=== PATIENT | male | born 1955 | race Caucasian/White ===

== ENCOUNTER 2018-05-15 15:33 | Inpatient (IN) | payer OTHER ==
[2018-05-15 16:17] LABS: ABNORMAL IP MESSAGE 1; HEMATOCRIT 53.7 % (42.0-52.0); HEMOGLOBIN 18.2 g/dl (14.0-18.0); MEAN CORPUSCULAR HEMOGLOBIN 28.7 pg (29.0-33.0); MEAN CORPUSCULAR HGB CONC 33.9 g/dl (32.0-37.0); MEAN CORPUSCULAR VOLUME 84.6 fl (82.0-101.0); MEAN PLATELET VOLUME 10.3 fl (7.4-10.4); PLATELET COUNT 294 10^3/UL (140-415); POSITIVE DIFF @See below; RED BLOOD COUNT 6.35 10^6/ul (4.70-6.10); RED CELL DISTRIBUTION WIDTH 12.4 % (11.5-14.5)
[2018-05-15 16:17] LABS: WHITE BLOOD COUNT 22.4 10^3/ul (4.8-10.8)
[2018-05-15 16:20] LABS: ADD MAN DIFF? YES; PATH REVIEW? YES
[2018-05-15 16:23] LABS: ALANINE AMINOTRANSFERASE 28 IU/L (13-69); ALBUMIN 4.9 g/dl (3.3-4.9); ALBUMIN/GLOBULIN RATIO 1.44; ALKALINE PHOSPHATASE 60 IU/L (42-121); ANION GAP 15 (5-13); ASPARTATE AMINO TRANSFERASE 49 IU/L (15-46); BILIRUBIN,INDIRECT 0.8 mg/dl (0-1.1); BILIRUBIN,TOTAL 0.8 mg/dl (0.2-1.3); BLOOD UREA NITROGEN 20 mg/dl (7-20); CALCIUM 10.5 mg/dl (8.4-10.2); CARBON DIOXIDE 25 mmol/L (21-31); CHLORIDE 98 mmol/L (97-110); CREATININE 1.18 mg/dl (0.61-1.24); Estimated GFR > 60 mL/min (>60); GLUCOSE 182 mg/dl (70-220); POTASSIUM 4.7 mmol/L (3.5-5.1); SODIUM 138 mmol/L (135-144); TOTAL PROTEIN 8.3 g/dl (6.1-8.1)
[2018-05-15] MEDS: SOD CHLORIDE 0.9% 1,000 ML IV (16:26)
[2018-05-15] MEDS: ONDANSETRON 4 MG INJ IV (16:26)
[2018-05-15 16:35] LABS: TROPONIN-I < 0.012 ng/ml (0.000-0.120)
[2018-05-15 16:48] LABS: LIPASE 4221 U/L (23-300)
[2018-05-15 17:17] LABS: ADD UMIC YES; UR ASCORBIC ACID NEGATIVE (NEGATIVE); UR BACTERIA FEW /HPF (NONE SEEN); UR BILIRUBIN (Dip) NEGATIVE (NEGATIVE); UR BLOOD (Dip) 2+ mg/dL (NEGATIVE); UR CLARITY SLIGHTLY CLOUDY (CLEAR); UR COLOR AMBER (YELLOW); UR GLUCOSE (Dip) NEGATIVE (NEGATIVE); UR KETONES (Dip) TRACE mg/dL (NEGATIVE); UR LEUKOCYTE ESTERASE (Dip) NEGATIVE Leu/ul (NEGATIVE); UR MUCUS FEW /HPF (NONE SEEN); UR NITRITE (Dip) NEGATIVE (NEGATIVE); UR RBC 3 /HPF (0-5); UR SPECIFIC GRAVITY (Dip) 1.032 (1.003-1.030); UR SQUAMOUS EPITHELIAL CELL FEW /HPF (FEW); UR TOTAL PROTEIN (Dip) 3+ mg/dl (NEGATIVE); UR UROBILINOGEN (Dip) NEGATIVE (NEGATIVE); UR WBC 9 /HPF (0-5)
[2018-05-15] MEDS: SODIUM CHLORIDE 0.9% 1L BAG IV* (18:06)
[2018-05-15] MEDS: CEFEPIME 2GM/50 ML (PMX) 50 ML IVPB (18:08)
[2018-05-15 18:10] LABS: ANISOCYTOSIS 1+ (0-0); BAND NEUTROPHILS #M 3.5 10^3/ul (0.0-0.6); BAND NEUTROPHILS % (M) 16 % (0-4); BURR CELLS 1+ (0-0); GIANT THROMBO% (M) 1 % (0-0); LYMPHOCYTES #M 0.6 10^3/ul (0.8-2.9); LYMPHOCYTES % (M) 3 % (15-51); MICROCYTOSIS 1+ (0-0); MONOCYTE #M 1.1 10^3/ul (0.3-0.9); MONOCYTES % (M) 5 % (0-11); OVALOCYTES 1+ (0-0); PLATELET ESTIMATE NORMAL; POIKILOCYTOSIS 2+ (0-0); SEG NEUT #M 17.8 10^3/ul (1.6-7.5); SEGMENTED NEUTROPHILS (M) % 76 % (39-77); SMUDGE%M 1 % (0-0)
[2018-05-15] MEDS: CLINDAMYCIN 900 MG/D5W (PMX) 50 ML IVPB (18:55)
[2018-05-15] MEDS: VANCOMYCIN 1 GM (PMX) 250 ML IVPB (18:55)
[2018-05-15 22:05] LABS: LACTIC ACID 1.8 mmol/L (0.5-2.0)
[2018-05-16] MEDS: ALBUTEROL 0.083% (NEB) 2.5 MG/3 ML AMP HHN (02:09)
[2018-05-16] MEDS: IPRATROPIUM (NEB) 0.5 MG/2.5 ML AMP HHN (02:09)
[2018-05-16] MEDS ORDERED: VANCOMYCIN IV PER PHARMACY XX (10:00)
[2018-05-16] MEDS: SOD CHLORIDE 0.9% 1,000 ML IV ×2 (10:10→21:18)
[2018-05-16 10:33] LABS: ADD MAN DIFF? NO
[2018-05-16] MEDS: CEFEPIME 1GM/50 ML (PMX) 50 ML IVPB (10:40)
[2018-05-16 10:46] LABS: ABNORMAL IP MESSAGE 1; HEMATOCRIT 50.7 % (42.0-52.0); MEAN CORPUSCULAR HGB CONC 33.5 g/dl (32.0-37.0); MEAN CORPUSCULAR VOLUME 86.5 fl (82.0-101.0); MEAN PLATELET VOLUME 10.5 fl (7.4-10.4); PLATELET COUNT 231 10^3/UL (140-415); POSITIVE DIFF @See below; RED BLOOD COUNT 5.86 10^6/ul (4.70-6.10); RED CELL DISTRIBUTION WIDTH 13.1 % (11.5-14.5)
[2018-05-16 10:46] LABS: WHITE BLOOD COUNT 29.4 10^3/ul (4.8-10.8)
[2018-05-16] MEDS: VANCOMYCIN 1 GM in 250 ML IVPB (10:58)
[2018-05-16 11:15] LABS: ALANINE AMINOTRANSFERASE 24 IU/L (13-69); ALBUMIN 4.1 g/dl (3.3-4.9); ALBUMIN/GLOBULIN RATIO 1.28; ALKALINE PHOSPHATASE 53 IU/L (42-121); ANION GAP 11 (5-13); ASPARTATE AMINO TRANSFERASE 38 IU/L (15-46); BILIRUBIN,INDIRECT 0.6 mg/dl (0-1.1); BILIRUBIN,TOTAL 0.6 mg/dl (0.2-1.3); BLOOD UREA NITROGEN 24 mg/dl (7-20); CALCIUM 9.4 mg/dl (8.4-10.2); CARBON DIOXIDE 27 mmol/L (21-31); CHLORIDE 104 mmol/L (97-110); CREATININE 1.13 mg/dl (0.61-1.24); Estimated GFR > 60 mL/min (>60); GLUCOSE 148 mg/dl (70-220); LIPASE 1464 U/L (23-300); POTASSIUM 4.3 mmol/L (3.5-5.1); SODIUM 142 mmol/L (135-144); TOTAL PROTEIN 7.3 g/dl (6.1-8.1)
[2018-05-16 11:31] LABS: ANISOCYTOSIS 1+ (0-0); BAND NEUTROPHILS #M 5.2 10^3/ul (0.0-0.6); BAND NEUTROPHILS % (M) 18 % (0-4); BURR CELLS 1+ (0-0); LYMPHOCYTES #M 0.2 10^3/ul (0.8-2.9); LYMPHOCYTES % (M) 1 % (15-51); METAMYELOCYTES #M 0.2 10^3/ul (0.0-0.0); METAMYELOCYTES %M 1 % (0-0); MONOCYTE #M 1.4 10^3/ul (0.3-0.9); MONOCYTES % (M) 5 % (0-11); PLATELET ESTIMATE NORMAL; RBC MORPHOLOGY COMMENT @See below; SEG NEUT #M 23.6 10^3/ul (1.6-7.5); SEGMENTED NEUTROPHILS (M) % 75 % (39-77); SMUDGE%M 18 % (0-0); WBC MORPHOLOGY COMMENT @See below
[2018-05-16] MEDS: LABETALOL HCL 20MG INJ IV (13:48)
[2018-05-16] MEDS ORDERED: ONDANSETRON 4 MG INJ IV (19:30)
[2018-05-16] MEDS ORDERED: HYDROmorphONE 0.5 MG/0.5 ML SYG IV (19:30)
[2018-05-16] MEDS ORDERED: NACL 0.9% 3 ML SYG IV (19:30)
[2018-05-16] MEDS: HEPARIN 5,000 UNIT/1 ML VIAL SC (21:21)
[2018-05-16] MEDS ORDERED: VANCOMYCIN HCL 1.5 GM in SOD CHLORIDE 0.9% 250 ML IVPB (22:00)
[2018-05-16] MEDS: ACETAMINOPHEN 325 MG TAB PO (22:06)
[2018-05-16] MEDS: LEVALBUTEROL (NEB) 1.25 MG/0.5 ML AMP HHN (23:29)
[2018-05-16] MEDS ORDERED: IPRATROPIUM (HFA) 12.9 GM INHALER INH (23:30)
[2018-05-16] MEDS ORDERED: IPRATROPIUM (NEB) 0.5 MG/2.5 ML AMP HHN (23:30)
[2018-05-16] MEDS ORDERED: FUROSEMIDE 40 MG INJ (23:43)
[2018-05-16] MEDS: VANCOMYCIN HCL 1.25 GM in SOD CHLORIDE 0.9% 250 ML IVPB (23:46)
[2018-05-16] MEDS: FUROSEMIDE 40 MG INJ IV (23:53)
[2018-05-16 23:59] LABS: AADO2 Arterial 80.3 mmHg (7.0-24.0); Allen Test ACCEPTAB; Arterial Base Excess 2.2 mmol/L (-3.0-3); Arterial Blood Gas Oxygen Sat 96.2 mmHG (95.0-98.0); Arterial COHb 0.9 % (0.0-3.0); Arterial Fraction of Oxyhgb 95.1 % (93.0-99.0); Arterial HCO3 27.8 mmol/L (22.0-26.0); Arterial MetHb 0.2 % (0.0-1.5); Arterial pCO2 46.5 mmhg (35-45); MODE NASAL CANNULA; Site Right Radial
[2018-05-17] MEDS ORDERED: DIPHENHYDRAMINE 50 MG CAP PO (00:30)
[2018-05-17] MEDS: ACETAMINOPHEN 325 MG TAB PO (01:06)
[2018-05-17] MEDS ORDERED: PIPER-TAZO 3.375 GM IV (PMX) 100 ML IVPB (02:00)
[2018-05-17] MEDS: PIPER-TAZO 3.375 GM IV (PMX) 100 ML IVPB ×5 (02:24→23:40)
[2018-05-17 05:55] LABS: ABNORMAL IP MESSAGE 1; HEMATOCRIT 47.4 % (42.0-52.0); HEMOGLOBIN 15.9 g/dl (14.0-18.0); MEAN CORPUSCULAR HEMOGLOBIN 29.1 pg (29.0-33.0); MEAN CORPUSCULAR HGB CONC 33.5 g/dl (32.0-37.0); MEAN CORPUSCULAR VOLUME 86.8 fl (82.0-101.0); MEAN PLATELET VOLUME 10.6 fl (7.4-10.4); PLATELET COUNT 184 10^3/UL (140-415); POSITIVE DIFF @See below; RED BLOOD COUNT 5.46 10^6/ul (4.70-6.10); RED CELL DISTRIBUTION WIDTH 13.2 % (11.5-14.5)
[2018-05-17 05:55] LABS: WHITE BLOOD COUNT 25.8 10^3/ul (4.8-10.8)
[2018-05-17 06:01] LABS: ADD MAN DIFF? YES
[2018-05-17 06:22] LABS: HEMOGLOBIN A1C 5.9 % (0-5.9)
[2018-05-17 06:32] LABS: ALANINE AMINOTRANSFERASE 26 IU/L (13-69); ALBUMIN 3.8 g/dl (3.3-4.9); ALBUMIN/GLOBULIN RATIO 1.18; ALKALINE PHOSPHATASE 55 IU/L (42-121); ANION GAP 13 (5-13); ASPARTATE AMINO TRANSFERASE 30 IU/L (15-46); BILIRUBIN,INDIRECT 0.5 mg/dl (0-1.1); BILIRUBIN,TOTAL 0.5 mg/dl (0.2-1.3); BLOOD UREA NITROGEN 27 mg/dl (7-20); CARBON DIOXIDE 29 mmol/L (21-31); CHLORIDE 104 mmol/L (97-110); CREATININE 1.03 mg/dl (0.61-1.24); Estimated GFR > 60 mL/min (>60); GLUCOSE 140 mg/dl (70-220); POTASSIUM 4.1 mmol/L (3.5-5.1); SODIUM 146 mmol/L (135-144)
[2018-05-17] MEDS: NIFEdipine (XL) 30 MG TAB PO (08:46)
[2018-05-17] MEDS: FLUOXETINE 20 MG CAP PO (08:47)
[2018-05-17] MEDS: BENAZEPRIL 40 MG TAB PO (08:47)
[2018-05-17] MEDS: HYDROCHLOROTHIAZIDE 12.5 MG CAP PO (08:47)
[2018-05-17] MEDS: ASPIRIN (EC) 81 MG TAB PO (08:48)
[2018-05-17] MEDS: ARIPIPRAZOLE 5 MG TAB PO (08:48)
[2018-05-17] MEDS: LABETALOL 100 MG TAB PO (08:49)
[2018-05-17 08:52] LABS: BAND NEUTROPHILS #M 4.1 10^3/ul (0.0-0.6); BAND NEUTROPHILS % (M) 16 % (0-4); LYMPHOCYTES % (M) 4 % (15-51); MONOCYTE #M 0.5 10^3/ul (0.3-0.9); MONOCYTES % (M) 2 % (0-11); PLATELET ESTIMATE NORMAL; POIKILOCYTOSIS 2+ (0-0); REACTIVE LYMPHOCYTES #M 0.2 10^3/ul (0.0-0.0); REACTIVE LYMPHOCYTES% (M) 1 % (0-0); SEG NEUT #M 20.9 10^3/ul (1.6-7.5); SEGMENTED NEUTROPHILS (M) % 77 % (39-77); SMUDGE%M 4 % (0-0)
[2018-05-17] MEDS: HEPARIN 5,000 UNIT/1 ML VIAL SC ×2 (08:53→20:33)
[2018-05-17] MEDS ORDERED: CHLORTHALIDONE 25 MG TAB PO (09:00)
[2018-05-17] MEDS: VANCOMYCIN HCL 1.25 GM in SOD CHLORIDE 0.9% 250 ML IVPB (12:07)
[2018-05-17] MEDS: TAMSULOSIN (SR) 0.4 MG CAP PO (20:28)
[2018-05-17 22:24] LABS: CHOLESTEROL 182 mg/dl (100-200)
[2018-05-17 22:24] LABS: CHOL/HDL RATIO 9.5 RATIO; HDL CHOLESTEROL 19 mg/dl (30-78); LDL CHOLESTEROL,CALCULATED 124 mg/dl; TRIGLYCERIDES 196 mg/dl (0-149)
[2018-05-17 22:35] LABS: VANCOMYCIN,TROUGH 8.3 ug/ml (10.0-20.0)
[2018-05-17] MEDS: VANCOMYCIN 1 GM 250 ML IVPB (23:40)
[2018-05-18] MEDS: ALBUMIN HUMAN 25% 100 ML IV ×2 (00:22→02:07)
[2018-05-18] MEDS: MEROPENEM 1 GM/50ML(PMX) 50 ML IVPB ×3 (01:21→18:00)
[2018-05-18] MEDS: DOCUSATE SODIUM 100 MG CAP PO ×3 (01:21→21:09)
[2018-05-18] MEDS: SOD CHLORIDE 0.9% 1,000 ML IV ×4 (01:21→23:45)
[2018-05-18] MEDS: POLYETHYLENE GLYCOL 17 GM PACKET PO ×2 (01:21→09:48)
[2018-05-18 06:06] LABS: ADD MAN DIFF? NO
[2018-05-18 06:16] LABS: BASOPHIL # 0.1 10^3/ul (0.0-0.1); BASOPHILS % 0.3 % (0.0-2.0); EOSINOPHILS % 0.1 % (0.0-7.0); HEMATOCRIT 42.5 % (42.0-52.0); HEMOGLOBIN 13.9 g/dl (14.0-18.0); LYMPHOCYTES # 1.3 10^3/ul (0.8-2.9); LYMPHOCYTES % 7.3 % (15.0-51.0); MEAN CORPUSCULAR HEMOGLOBIN 28.8 pg (29.0-33.0); MEAN CORPUSCULAR HGB CONC 32.7 g/dl (32.0-37.0); MONOCYTES % 5.3 % (0.0-11.0); NEUTROPHIL # 15.8 10^3/ul (1.6-7.5); NEUTROPHILS % 86.1 % (39.0-77.0); PLATELET COUNT 216 10^3/UL (140-415); RED BLOOD COUNT 4.83 10^6/ul (4.70-6.10); RED CELL DISTRIBUTION WIDTH 13.1 % (11.5-14.5)
[2018-05-18 06:16] LABS: WHITE BLOOD COUNT 18.3 10^3/ul (4.8-10.8)
[2018-05-18 06:40] LABS: ALANINE AMINOTRANSFERASE 27 IU/L (13-69); ALBUMIN/GLOBULIN RATIO 1.25; ALKALINE PHOSPHATASE 57 IU/L (42-121); ANION GAP 13 (5-13); ASPARTATE AMINO TRANSFERASE 33 IU/L (15-46); BILIRUBIN,INDIRECT 0.6 mg/dl (0-1.1); BILIRUBIN,TOTAL 0.6 mg/dl (0.2-1.3); BLOOD UREA NITROGEN 28 mg/dl (7-20); CALCIUM 9.1 mg/dl (8.4-10.2); CARBON DIOXIDE 32 mmol/L (21-31); CHLORIDE 104 mmol/L (97-110); CREATININE 0.93 mg/dl (0.61-1.24); Estimated GFR > 60 mL/min (>60); GLUCOSE 127 mg/dl (70-220); LIPASE 393 U/L (23-300); POTASSIUM 3.4 mmol/L (3.5-5.1); SODIUM 149 mmol/L (135-144); TOTAL PROTEIN 7.2 g/dl (6.1-8.1)
[2018-05-18] MEDS: VANCOMYCIN 1 GM 250 ML IVPB (06:58)
[2018-05-18] MEDS: ARIPIPRAZOLE 5 MG TAB PO (09:48)
[2018-05-18] MEDS: ASPIRIN (EC) 81 MG TAB PO (09:48)
[2018-05-18] MEDS: FLUOXETINE 20 MG CAP PO (09:48)
[2018-05-18] MEDS: NIFEdipine (XL) 30 MG TAB PO (09:49)
[2018-05-18] MEDS: LABETALOL 100 MG TAB PO (09:49)
[2018-05-18] MEDS: HEPARIN 5,000 UNIT/1 ML VIAL SC ×2 (09:58→21:18)
[2018-05-18] MEDS: TAMSULOSIN (SR) 0.4 MG CAP PO (21:09)
[2018-05-19] MEDS: MEROPENEM 1 GM/50ML(PMX) 50 ML IVPB ×3 (01:07→18:42)
[2018-05-19 06:02] LABS: ANION GAP 7 (5-13); BLOOD UREA NITROGEN 23 mg/dl (7-20); CALCIUM 8.8 mg/dl (8.4-10.2); CARBON DIOXIDE 31 mmol/L (21-31); CHLORIDE 107 mmol/L (97-110); CREATININE 0.78 mg/dl (0.61-1.24); Estimated GFR > 60 mL/min (>60); GLUCOSE 119 mg/dl (70-220); LIPASE 459 U/L (23-300); POTASSIUM 3.2 mmol/L (3.5-5.1); SODIUM 145 mmol/L (135-144)
[2018-05-19] MEDS: SOD CHLORIDE 0.9% 1,000 ML IV ×2 (08:38→16:32)
[2018-05-19] MEDS: POLYETHYLENE GLYCOL 17 GM PACKET PO (08:42)
[2018-05-19] MEDS: ARIPIPRAZOLE 5 MG TAB PO (08:42)
[2018-05-19] MEDS: NIFEdipine (XL) 30 MG TAB PO (08:42)
[2018-05-19] MEDS: ASPIRIN (EC) 81 MG TAB PO (08:42)
[2018-05-19] MEDS: FLUOXETINE 20 MG CAP PO (08:42)
[2018-05-19] MEDS: DOCUSATE SODIUM 100 MG CAP PO ×2 (08:43→21:09)
[2018-05-19] MEDS: LABETALOL 100 MG TAB PO (08:43)
[2018-05-19] MEDS: HEPARIN 5,000 UNIT/1 ML VIAL SC ×2 (09:33→21:12)
[2018-05-19] MEDS: POTASSIUM CHLORIDE 100 ML IVPB ×2 (14:25→21:08)
[2018-05-19] MEDS: TAMSULOSIN (SR) 0.4 MG CAP PO (21:09)
[2018-05-20] MEDS: SOD CHLORIDE 0.9% 1,000 ML IV ×3 (01:00→15:09)
[2018-05-20] MEDS: MEROPENEM 1 GM/50ML(PMX) 50 ML IVPB ×3 (01:00→16:38)
[2018-05-20 05:35] LABS: ADD MAN DIFF? NO
[2018-05-20 05:37] LABS: BASOPHILS % 0.2 % (0.0-2.0); EOSINOPHILS # 0.3 10^3/ul (0.0-0.5); EOSINOPHILS % 2.1 % (0.0-7.0); HEMATOCRIT 42.3 % (42.0-52.0); HEMOGLOBIN 14.1 g/dl (14.0-18.0); LYMPHOCYTES # 1.4 10^3/ul (0.8-2.9); LYMPHOCYTES % 8.5 % (15.0-51.0); MEAN CORPUSCULAR HGB CONC 33.3 g/dl (32.0-37.0); MEAN CORPUSCULAR VOLUME 86.9 fl (82.0-101.0); MEAN PLATELET VOLUME 10.9 fl (7.4-10.4); MONOCYTE # 1.1 10^3/ul (0.3-0.9); MONOCYTES % 6.6 % (0.0-11.0); NEUTROPHIL # 13.1 10^3/ul (1.6-7.5); NEUTROPHILS % 81.7 % (39.0-77.0); PLATELET COUNT 210 10^3/UL (140-415); RED BLOOD COUNT 4.87 10^6/ul (4.70-6.10); RED CELL DISTRIBUTION WIDTH 12.9 % (11.5-14.5)
[2018-05-20 06:29] LABS: ANION GAP 11 (5-13); BLOOD UREA NITROGEN 19 mg/dl (7-20); CALCIUM 8.9 mg/dl (8.4-10.2); CARBON DIOXIDE 26 mmol/L (21-31); CHLORIDE 104 mmol/L (97-110); CREATININE 0.76 mg/dl (0.61-1.24); Estimated GFR > 60 mL/min (>60); GLUCOSE 106 mg/dl (70-220); LIPASE 437 U/L (23-300); POTASSIUM 3.3 mmol/L (3.5-5.1); SODIUM 141 mmol/L (135-144)
[2018-05-20] MEDS: DOCUSATE SODIUM 100 MG CAP PO ×2 (08:36→21:00)
[2018-05-20] MEDS: POLYETHYLENE GLYCOL 17 GM PACKET PO (08:36)
[2018-05-20] MEDS: ASPIRIN (EC) 81 MG TAB PO (08:37)
[2018-05-20] MEDS: LABETALOL 100 MG TAB PO (08:37)
[2018-05-20] MEDS: FLUOXETINE 20 MG CAP PO (08:37)
[2018-05-20] MEDS: ARIPIPRAZOLE 5 MG TAB PO (08:37)
[2018-05-20] MEDS: NIFEdipine (XL) 30 MG TAB PO (08:38)
[2018-05-20] MEDS: HEPARIN 5,000 UNIT/1 ML VIAL SC ×2 (09:05→21:04)
[2018-05-20] MEDS: TAMSULOSIN (SR) 0.4 MG CAP PO (21:00)
[2018-05-21] MEDS: MEROPENEM 1 GM/50ML(PMX) 50 ML IVPB ×3 (02:22→16:15)
[2018-05-21] MEDS: SOD CHLORIDE 0.9% 1,000 ML IV ×2 (02:23→08:29)
[2018-05-21 05:38] LABS: ADD MAN DIFF? NO
[2018-05-21 05:41] LABS: WHITE BLOOD COUNT 15.2 10^3/ul (4.8-10.8)
[2018-05-21 05:41] LABS: BASOPHIL # 0.1 10^3/ul (0.0-0.1); BASOPHILS % 0.4 % (0.0-2.0); EOSINOPHILS # 0.3 10^3/ul (0.0-0.5); EOSINOPHILS % 1.9 % (0.0-7.0); HEMATOCRIT 42.1 % (42.0-52.0); HEMOGLOBIN 13.9 g/dl (14.0-18.0); LYMPHOCYTES # 1.3 10^3/ul (0.8-2.9); LYMPHOCYTES % 8.7 % (15.0-51.0); MEAN CORPUSCULAR HEMOGLOBIN 28.8 pg (29.0-33.0); MEAN CORPUSCULAR VOLUME 87.3 fl (82.0-101.0); MEAN PLATELET VOLUME 10.8 fl (7.4-10.4); MONOCYTES % 6.6 % (0.0-11.0); NEUTROPHIL # 12.2 10^3/ul (1.6-7.5); NEUTROPHILS % 80.5 % (39.0-77.0); PLATELET COUNT 214 10^3/UL (140-415); RED BLOOD COUNT 4.82 10^6/ul (4.70-6.10); RED CELL DISTRIBUTION WIDTH 12.6 % (11.5-14.5)
[2018-05-21 06:08] LABS: ALANINE AMINOTRANSFERASE 45 IU/L (13-69); ALBUMIN 3.3 g/dl (3.3-4.9); ALBUMIN/GLOBULIN RATIO 1.06; ALKALINE PHOSPHATASE 61 IU/L (42-121); ANION GAP 14 (5-13); ASPARTATE AMINO TRANSFERASE 43 IU/L (15-46); BILIRUBIN,INDIRECT 0.2 mg/dl (0-1.1); BILIRUBIN,TOTAL 0.2 mg/dl (0.2-1.3); BLOOD UREA NITROGEN 19 mg/dl (7-20); CALCIUM 8.7 mg/dl (8.4-10.2); CARBON DIOXIDE 27 mmol/L (21-31); CHLORIDE 103 mmol/L (97-110); CREATININE 0.71 mg/dl (0.61-1.24); Estimated GFR > 60 mL/min (>60); GLUCOSE 102 mg/dl (70-220); LIPASE 413 U/L (23-300); POTASSIUM 3.3 mmol/L (3.5-5.1); SODIUM 144 mmol/L (135-144); TOTAL PROTEIN 6.4 g/dl (6.1-8.1)
[2018-05-21] MEDS: DOCUSATE SODIUM 100 MG CAP PO ×2 (08:20→20:39)
[2018-05-21] MEDS: FLUOXETINE 20 MG CAP PO (08:20)
[2018-05-21] MEDS: ARIPIPRAZOLE 5 MG TAB PO (08:20)
[2018-05-21] MEDS: ASPIRIN (EC) 81 MG TAB PO (08:20)
[2018-05-21] MEDS: POLYETHYLENE GLYCOL 17 GM PACKET PO (08:21)
[2018-05-21] MEDS: LABETALOL 100 MG TAB PO (08:21)
[2018-05-21] MEDS: NIFEdipine (XL) 30 MG TAB PO (08:21)
[2018-05-21] MEDS: HEPARIN 5,000 UNIT/1 ML VIAL SC ×2 (08:27→20:40)
[2018-05-21] MEDS: POTASSIUM CHLORIDE 30 MEQ in SOD CHLORIDE 0.9% 1,000 ML IV ×2 (11:40→22:09)
[2018-05-21] MEDS: TAMSULOSIN (SR) 0.4 MG CAP PO (20:39)
[2018-05-22] MEDS: MEROPENEM 1 GM/50ML(PMX) 50 ML IVPB ×3 (00:30→17:06)
[2018-05-22 05:29] LABS: ADD MAN DIFF? NO
[2018-05-22 05:39] LABS: BASOPHIL # 0.1 10^3/ul (0.0-0.1); BASOPHILS % 0.6 % (0.0-2.0); EOSINOPHILS # 0.3 10^3/ul (0.0-0.5); EOSINOPHILS % 2.4 % (0.0-7.0); HEMATOCRIT 39.9 % (42.0-52.0); HEMOGLOBIN 13.5 g/dl (14.0-18.0); LYMPHOCYTES # 1.3 10^3/ul (0.8-2.9); LYMPHOCYTES % 9.6 % (15.0-51.0); MEAN CORPUSCULAR HGB CONC 33.8 g/dl (32.0-37.0); MEAN CORPUSCULAR VOLUME 85.8 fl (82.0-101.0); MEAN PLATELET VOLUME 11.1 fl (7.4-10.4); MONOCYTES % 6.8 % (0.0-11.0); NEUTROPHIL # 11.1 10^3/ul (1.6-7.5); PLATELET COUNT 229 10^3/UL (140-415); RED BLOOD COUNT 4.65 10^6/ul (4.70-6.10); RED CELL DISTRIBUTION WIDTH 12.8 % (11.5-14.5)
[2018-05-22 05:58] LABS: ALBUMIN 3.3 g/dl (3.3-4.9); ALBUMIN/GLOBULIN RATIO 1.26; ALKALINE PHOSPHATASE 68 IU/L (42-121); ANION GAP 11 (5-13); ASPARTATE AMINO TRANSFERASE 42 IU/L (15-46); BILIRUBIN,INDIRECT 0.2 mg/dl (0-1.1); BILIRUBIN,TOTAL 0.2 mg/dl (0.2-1.3); BLOOD UREA NITROGEN 18 mg/dl (7-20); CALCIUM 8.7 mg/dl (8.4-10.2); CARBON DIOXIDE 26 mmol/L (21-31); CHLORIDE 104 mmol/L (97-110); CREATININE 0.67 mg/dl (0.61-1.24); Estimated GFR > 60 mL/min (>60); GLUCOSE 104 mg/dl (70-220); POTASSIUM 3.3 mmol/L (3.5-5.1); SODIUM 141 mmol/L (135-144); TOTAL PROTEIN 5.9 g/dl (6.1-8.1)
[2018-05-22 06:02] LABS: ALANINE AMINOTRANSFERASE 41 IU/L (13-69)
[2018-05-22 06:04] LABS: LIPASE 326 U/L (23-300)
[2018-05-22] MEDS: POTASSIUM CHLORIDE 30 MEQ in SOD CHLORIDE 0.9% 1,000 ML IV ×2 (08:18→17:05)
[2018-05-22] MEDS: ARIPIPRAZOLE 5 MG TAB PO (08:45)
[2018-05-22] MEDS: FLUOXETINE 20 MG CAP PO (08:45)
[2018-05-22] MEDS: DOCUSATE SODIUM 100 MG CAP PO ×2 (08:47→21:36)
[2018-05-22] MEDS: LABETALOL 100 MG TAB PO (08:47)
[2018-05-22] MEDS: NIFEdipine (XL) 30 MG TAB PO (08:48)
[2018-05-22] MEDS: POLYETHYLENE GLYCOL 17 GM PACKET PO (08:52)
[2018-05-22] MEDS: ASPIRIN (EC) 81 MG TAB PO (08:52)
[2018-05-22] MEDS: HEPARIN 5,000 UNIT/1 ML VIAL SC ×2 (09:03→21:42)
[2018-05-22] MEDS: TAMSULOSIN (SR) 0.4 MG CAP PO (21:36)
[2018-05-23] MEDS: MEROPENEM 1 GM/50ML(PMX) 50 ML IVPB ×3 (01:26→16:02)
[2018-05-23] MEDS: POTASSIUM CHLORIDE 30 MEQ in SOD CHLORIDE 0.9% 1,000 ML IV ×3 (01:27→16:02)
[2018-05-23 05:39] LABS: ADD MAN DIFF? NO
[2018-05-23 05:45] LABS: BASOPHIL # 0.1 10^3/ul (0.0-0.1); BASOPHILS % 0.4 % (0.0-2.0); EOSINOPHILS # 0.3 10^3/ul (0.0-0.5); EOSINOPHILS % 2.4 % (0.0-7.0); HEMOGLOBIN 13.1 g/dl (14.0-18.0); LYMPHOCYTES # 1.1 10^3/ul (0.8-2.9); LYMPHOCYTES % 8.8 % (15.0-51.0); MEAN CORPUSCULAR HEMOGLOBIN 28.2 pg (29.0-33.0); MEAN CORPUSCULAR HGB CONC 32.8 g/dl (32.0-37.0); MEAN CORPUSCULAR VOLUME 86.2 fl (82.0-101.0); MEAN PLATELET VOLUME 10.6 fl (7.4-10.4); MONOCYTE # 0.9 10^3/ul (0.3-0.9); MONOCYTES % 6.8 % (0.0-11.0); NEUTROPHIL # 10.1 10^3/ul (1.6-7.5); NEUTROPHILS % 80.3 % (39.0-77.0); PLATELET COUNT 236 10^3/UL (140-415); RED BLOOD COUNT 4.64 10^6/ul (4.70-6.10); RED CELL DISTRIBUTION WIDTH 12.8 % (11.5-14.5)
[2018-05-23 05:45] LABS: WHITE BLOOD COUNT 12.6 10^3/ul (4.8-10.8)
[2018-05-23 06:06] LABS: ALANINE AMINOTRANSFERASE 45 IU/L (13-69); ALBUMIN 3.2 g/dl (3.3-4.9); ALKALINE PHOSPHATASE 69 IU/L (42-121); ANION GAP 11 (5-13); ASPARTATE AMINO TRANSFERASE 45 IU/L (15-46); BILIRUBIN,INDIRECT 0.2 mg/dl (0-1.1); BILIRUBIN,TOTAL 0.2 mg/dl (0.2-1.3); BLOOD UREA NITROGEN 15 mg/dl (7-20); CALCIUM 8.7 mg/dl (8.4-10.2); CARBON DIOXIDE 25 mmol/L (21-31); CHLORIDE 103 mmol/L (97-110); CREATININE 0.65 mg/dl (0.61-1.24); Estimated GFR > 60 mL/min (>60); POTASSIUM 3.5 mmol/L (3.5-5.1); SODIUM 139 mmol/L (135-144); TOTAL PROTEIN 6.1 g/dl (6.1-8.1)
[2018-05-23 06:12] LABS: GLUCOSE 106 mg/dl (70-220)
[2018-05-23] MEDS: LABETALOL 100 MG TAB PO (08:26)
[2018-05-23] MEDS: POLYETHYLENE GLYCOL 17 GM PACKET PO (08:26)
[2018-05-23] MEDS: ASPIRIN (EC) 81 MG TAB PO (08:26)
[2018-05-23] MEDS: NIFEdipine (XL) 30 MG TAB PO (08:26)
[2018-05-23] MEDS: ARIPIPRAZOLE 5 MG TAB PO (08:26)
[2018-05-23] MEDS: FLUOXETINE 20 MG CAP PO (08:26)
[2018-05-23] MEDS: DOCUSATE SODIUM 100 MG CAP PO ×2 (08:26→21:57)
[2018-05-23] MEDS: HEPARIN 5,000 UNIT/1 ML VIAL SC ×2 (08:34→22:11)
[2018-05-23] MEDS: TAMSULOSIN (SR) 0.4 MG CAP PO (21:57)
[2018-05-24] MEDS: MEROPENEM 1 GM/50ML(PMX) 50 ML IVPB ×3 (01:00→16:21)
[2018-05-24] MEDS: POTASSIUM CHLORIDE 30 MEQ in SOD CHLORIDE 0.9% 1,000 ML IV ×3 (01:14→16:21)
[2018-05-24 05:14] LABS: ADD MAN DIFF? NO; BASOPHILS % 0.4 % (0.0-2.0); EOSINOPHILS # 0.3 10^3/ul (0.0-0.5); EOSINOPHILS % 2.9 % (0.0-7.0); HEMATOCRIT 38.2 % (42.0-52.0); HEMOGLOBIN 12.9 g/dl (14.0-18.0); LYMPHOCYTES # 1.2 10^3/ul (0.8-2.9); LYMPHOCYTES % 10.1 % (15.0-51.0); MEAN CORPUSCULAR HEMOGLOBIN 29.1 pg (29.0-33.0); MEAN CORPUSCULAR HGB CONC 33.8 g/dl (32.0-37.0); MEAN CORPUSCULAR VOLUME 86.2 fl (82.0-101.0); MEAN PLATELET VOLUME 10.8 fl (7.4-10.4); MONOCYTE # 0.8 10^3/ul (0.3-0.9); MONOCYTES % 7.1 % (0.0-11.0); NEUTROPHIL # 8.9 10^3/ul (1.6-7.5); NEUTROPHILS % 78.3 % (39.0-77.0); PLATELET COUNT 231 10^3/UL (140-415); RED BLOOD COUNT 4.43 10^6/ul (4.70-6.10); RED CELL DISTRIBUTION WIDTH 12.9 % (11.5-14.5)
[2018-05-24 05:14] LABS: WHITE BLOOD COUNT 11.4 10^3/ul (4.8-10.8)
[2018-05-24 05:51] LABS: ALANINE AMINOTRANSFERASE 41 IU/L (13-69); ALBUMIN 3.2 g/dl (3.3-4.9); ALBUMIN/GLOBULIN RATIO 1.18; ALKALINE PHOSPHATASE 68 IU/L (42-121); ANION GAP 10 (5-13); ASPARTATE AMINO TRANSFERASE 46 IU/L (15-46); BILIRUBIN,INDIRECT 0.1 mg/dl (0-1.1); BILIRUBIN,TOTAL 0.1 mg/dl (0.2-1.3); BLOOD UREA NITROGEN 14 mg/dl (7-20); CALCIUM 8.6 mg/dl (8.4-10.2); CARBON DIOXIDE 29 mmol/L (21-31); CHLORIDE 101 mmol/L (97-110); Estimated GFR > 60 mL/min (>60); GLUCOSE 122 mg/dl (70-220); LIPASE 288 U/L (23-300); POTASSIUM 3.5 mmol/L (3.5-5.1); SODIUM 140 mmol/L (135-144); TOTAL PROTEIN 5.9 g/dl (6.1-8.1)
[2018-05-24] MEDS: ASPIRIN (EC) 81 MG TAB PO (08:20)
[2018-05-24] MEDS: ARIPIPRAZOLE 5 MG TAB PO (08:20)
[2018-05-24] MEDS: DOCUSATE SODIUM 100 MG CAP PO ×2 (08:20→20:05)
[2018-05-24] MEDS: POLYETHYLENE GLYCOL 17 GM PACKET PO (08:20)
[2018-05-24] MEDS: FLUOXETINE 20 MG CAP PO (08:21)
[2018-05-24] MEDS: NIFEdipine (XL) 30 MG TAB PO (08:21)
[2018-05-24] MEDS: LABETALOL 100 MG TAB PO (08:21)
[2018-05-24] MEDS: HEPARIN 5,000 UNIT/1 ML VIAL SC ×2 (08:27→20:15)
[2018-05-24] MEDS: TAMSULOSIN (SR) 0.4 MG CAP PO (20:04)
[2018-05-25] MEDS: MEROPENEM 1 GM/50ML(PMX) 50 ML IVPB ×3 (01:18→17:54)
[2018-05-25] MEDS: POTASSIUM CHLORIDE 30 MEQ in SOD CHLORIDE 0.9% 1,000 ML IV ×3 (02:24→17:52)
[2018-05-25 05:39] LABS: ADD MAN DIFF? NO
[2018-05-25 05:43] LABS: BASOPHILS % 0.2 % (0.0-2.0); EOSINOPHILS # 0.3 10^3/ul (0.0-0.5); EOSINOPHILS % 2.9 % (0.0-7.0); HEMOGLOBIN 12.9 g/dl (14.0-18.0); LYMPHOCYTES # 1.2 10^3/ul (0.8-2.9); LYMPHOCYTES % 13.2 % (15.0-51.0); MEAN CORPUSCULAR HEMOGLOBIN 28.2 pg (29.0-33.0); MEAN CORPUSCULAR HGB CONC 32.3 g/dl (32.0-37.0); MEAN CORPUSCULAR VOLUME 87.3 fl (82.0-101.0); MEAN PLATELET VOLUME 10.9 fl (7.4-10.4); MONOCYTE # 0.7 10^3/ul (0.3-0.9); MONOCYTES % 7.7 % (0.0-11.0); NEUTROPHIL # 6.8 10^3/ul (1.6-7.5); PLATELET COUNT 244 10^3/UL (140-415); RED BLOOD COUNT 4.58 10^6/ul (4.70-6.10)
[2018-05-25 06:09] LABS: ALANINE AMINOTRANSFERASE 52 IU/L (13-69); ALBUMIN/GLOBULIN RATIO 1.03; ALKALINE PHOSPHATASE 63 IU/L (42-121); ANION GAP 8 (5-13); ASPARTATE AMINO TRANSFERASE 46 IU/L (15-46); BLOOD UREA NITROGEN 13 mg/dl (7-20); CALCIUM 8.7 mg/dl (8.4-10.2); CARBON DIOXIDE 31 mmol/L (21-31); CHLORIDE 102 mmol/L (97-110); CREATININE 0.72 mg/dl (0.61-1.24); Estimated GFR > 60 mL/min (>60); GLUCOSE 124 mg/dl (70-220); LIPASE 294 U/L (23-300); POTASSIUM 3.8 mmol/L (3.5-5.1); SODIUM 141 mmol/L (135-144); TOTAL PROTEIN 5.9 g/dl (6.1-8.1)
[2018-05-25] MEDS: ARIPIPRAZOLE 5 MG TAB PO (08:57)
[2018-05-25] MEDS: LABETALOL 100 MG TAB PO (08:58)
[2018-05-25] MEDS: POLYETHYLENE GLYCOL 17 GM PACKET PO (08:58)
[2018-05-25] MEDS: ASPIRIN (EC) 81 MG TAB PO (08:58)
[2018-05-25] MEDS: DOCUSATE SODIUM 100 MG CAP PO ×2 (08:58→20:46)
[2018-05-25] MEDS: NIFEdipine (XL) 30 MG TAB PO (08:59)
[2018-05-25] MEDS: FLUOXETINE 20 MG CAP PO (08:59)
[2018-05-25] MEDS: HEPARIN 5,000 UNIT/1 ML VIAL SC ×2 (09:15→20:51)
[2018-05-25] MEDS: TAMSULOSIN (SR) 0.4 MG CAP PO (20:46)
[2018-05-26] MEDS: MEROPENEM 1 GM/50ML(PMX) 50 ML IVPB ×3 (00:21→16:15)
[2018-05-26] MEDS: POTASSIUM CHLORIDE 30 MEQ in SOD CHLORIDE 0.9% 1,000 ML IV ×3 (03:00→16:17)
[2018-05-26 06:03] LABS: ADD MAN DIFF? NO
[2018-05-26 06:11] LABS: BASOPHILS % 0.4 % (0.0-2.0); EOSINOPHILS # 0.2 10^3/ul (0.0-0.5); EOSINOPHILS % 2.9 % (0.0-7.0); HEMATOCRIT 37.8 % (42.0-52.0); HEMOGLOBIN 12.2 g/dl (14.0-18.0); LYMPHOCYTES # 1.3 10^3/ul (0.8-2.9); LYMPHOCYTES % 15.8 % (15.0-51.0); MEAN CORPUSCULAR HEMOGLOBIN 28.6 pg (29.0-33.0); MEAN CORPUSCULAR HGB CONC 32.3 g/dl (32.0-37.0); MEAN CORPUSCULAR VOLUME 88.5 fl (82.0-101.0); MEAN PLATELET VOLUME 11.3 fl (7.4-10.4); MONOCYTE # 0.6 10^3/ul (0.3-0.9); MONOCYTES % 7.6 % (0.0-11.0); NEUTROPHIL # 5.8 10^3/ul (1.6-7.5); NEUTROPHILS % 72.5 % (39.0-77.0); PLATELET COUNT 254 10^3/UL (140-415); RED BLOOD COUNT 4.27 10^6/ul (4.70-6.10); RED CELL DISTRIBUTION WIDTH 12.9 % (11.5-14.5)
[2018-05-26 06:46] LABS: ALANINE AMINOTRANSFERASE 50 IU/L (13-69); ALBUMIN/GLOBULIN RATIO 1.03; ALKALINE PHOSPHATASE 64 IU/L (42-121); ANION GAP 6 (5-13); ASPARTATE AMINO TRANSFERASE 57 IU/L (15-46); BLOOD UREA NITROGEN 11 mg/dl (7-20); CALCIUM 8.4 mg/dl (8.4-10.2); CARBON DIOXIDE 31 mmol/L (21-31); CHLORIDE 102 mmol/L (97-110); CREATININE 0.74 mg/dl (0.61-1.24); Estimated GFR > 60 mL/min (>60); GLUCOSE 123 mg/dl (70-220); LIPASE 337 U/L (23-300); POTASSIUM 4.1 mmol/L (3.5-5.1); SODIUM 139 mmol/L (135-144); TOTAL PROTEIN 5.9 g/dl (6.1-8.1)
[2018-05-26] MEDS: POLYETHYLENE GLYCOL 17 GM PACKET PO (09:00)
[2018-05-26] MEDS: DOCUSATE SODIUM 100 MG CAP PO ×2 (09:00→20:42)
[2018-05-26] MEDS: NIFEdipine (XL) 30 MG TAB PO (09:08)
[2018-05-26] MEDS: ARIPIPRAZOLE 5 MG TAB PO (09:08)
[2018-05-26] MEDS: FLUOXETINE 20 MG CAP PO (09:09)
[2018-05-26] MEDS: ASPIRIN (EC) 81 MG TAB PO (09:09)
[2018-05-26] MEDS: LABETALOL 100 MG TAB PO (09:10)
[2018-05-26] MEDS: HEPARIN 5,000 UNIT/1 ML VIAL SC ×2 (09:16→20:50)
[2018-05-26] MEDS: TAMSULOSIN (SR) 0.4 MG CAP PO (20:42)
[2018-05-27 05:46] LABS: ADD MAN DIFF? NO
[2018-05-27 05:47] LABS: WHITE BLOOD COUNT 7.2 10^3/ul (4.8-10.8)
[2018-05-27 05:47] LABS: BASOPHILS % 0.4 % (0.0-2.0); EOSINOPHILS # 0.3 10^3/ul (0.0-0.5); EOSINOPHILS % 3.5 % (0.0-7.0); HEMATOCRIT 38.4 % (42.0-52.0); HEMOGLOBIN 12.6 g/dl (14.0-18.0); LYMPHOCYTES # 1.5 10^3/ul (0.8-2.9); LYMPHOCYTES % 21.5 % (15.0-51.0); MEAN CORPUSCULAR HEMOGLOBIN 28.6 pg (29.0-33.0); MEAN CORPUSCULAR HGB CONC 32.8 g/dl (32.0-37.0); MEAN CORPUSCULAR VOLUME 87.1 fl (82.0-101.0); MEAN PLATELET VOLUME 10.8 fl (7.4-10.4); MONOCYTE # 0.6 10^3/ul (0.3-0.9); MONOCYTES % 8.2 % (0.0-11.0); NEUTROPHIL # 4.7 10^3/ul (1.6-7.5); NEUTROPHILS % 65.8 % (39.0-77.0); PLATELET COUNT 239 10^3/UL (140-415); RED BLOOD COUNT 4.41 10^6/ul (4.70-6.10); RED CELL DISTRIBUTION WIDTH 12.5 % (11.5-14.5)
[2018-05-27 06:15] LABS: ALANINE AMINOTRANSFERASE 58 IU/L (13-69); ALBUMIN 3.1 g/dl (3.3-4.9); ALKALINE PHOSPHATASE 57 IU/L (42-121); ANION GAP 6 (5-13); ASPARTATE AMINO TRANSFERASE 45 IU/L (15-46); BILIRUBIN,INDIRECT 0.2 mg/dl (0-1.1); BILIRUBIN,TOTAL 0.2 mg/dl (0.2-1.3); BLOOD UREA NITROGEN 10 mg/dl (7-20); CALCIUM 8.7 mg/dl (8.4-10.2); CARBON DIOXIDE 35 mmol/L (21-31); CHLORIDE 97 mmol/L (97-110); CREATININE 0.66 mg/dl (0.61-1.24); Estimated GFR > 60 mL/min (>60); GLUCOSE 121 mg/dl (70-220); LIPASE 332 U/L (23-300); POTASSIUM 3.9 mmol/L (3.5-5.1); SODIUM 138 mmol/L (135-144); TOTAL PROTEIN 6.2 g/dl (6.1-8.1)
[2018-05-27] MEDS: POLYETHYLENE GLYCOL 17 GM PACKET PO (09:00)
[2018-05-27] MEDS: DOCUSATE SODIUM 100 MG CAP PO (09:20)
[2018-05-27] MEDS: FLUOXETINE 20 MG CAP PO (09:21)
[2018-05-27] MEDS: ASPIRIN (EC) 81 MG TAB PO (09:21)
[2018-05-27] MEDS: NIFEdipine (XL) 30 MG TAB PO (09:21)
[2018-05-27] MEDS: LABETALOL 100 MG TAB PO (09:21)
[2018-05-27] MEDS: ARIPIPRAZOLE 5 MG TAB PO (09:21)
[2018-05-27] MEDS: HEPARIN 5,000 UNIT/1 ML VIAL SC (09:30)
== END 2018-05-27 19:27 | DRG 871 ==
LOC: 6WM 05-17 00:56 → E/R 15:33 → 6WM 05-17 00:58 → 5EC 05-16 19:02
PROVIDERS: Internal Medicine
PROC: 5A0935Z Assistance with Respiratory Ventilation, Less than 24 Consecutive Hours (ICD-10-PCS; principal; 2018-05-17)
DX: A41.9 Sepsis, unspecified organism (principal); K85.10 Biliary acute pancreatitis without necrosis or infection; J96.01 Acute respiratory failure with hypoxia; J18.9 Pneumonia, unspecified organism; E66.01 Morbid (severe) obesity due to excess calories; Z68.38 Body mass index [BMI] 38.0-38.9, adult; E87.70 Fluid overload, unspecified; F32.9 Major depressive disorder, single episode, unspecified; I10 Essential (primary) hypertension; R53.81 Other malaise; R73.03 Prediabetes; F20.9 Schizophrenia, unspecified; F03.90 Unspecified dementia, unspecified severity, without behavioral disturbance, psychotic disturbance, mood disturbance, and anxiety
CPT/HCPCS: 36415; 36600; 71045; 74176; 80048; 80053; 80061; 80202; 81001; 82803; 82962; 83036; 83605; 83690; 84484; 85025; 87040; 93005; 93306; 94640; 94664; 96374; 96375; 96376; 97110; 97116; 97162; 97530; 99285-25

== ENCOUNTER 2018-08-13 14:06 | Emergency (ER) | payer OTHER ==
[2018-08-13 20:10] LABS: ADD MAN DIFF? NO
[2018-08-13] MEDS: ONDANSETRON 4 MG INJ IV (20:10)
[2018-08-13] MEDS: SOD CHLORIDE 0.9% 500 ML IV (20:10)
[2018-08-13] MEDS: KETOROLAC 15 MG INJ IV (20:10)
[2018-08-13 20:11] LABS: WHITE BLOOD COUNT 8.3 10^3/ul (4.8-10.8)
[2018-08-13 20:12] LABS: BASOPHILS % 0.5 % (0.0-2.0); EOSINOPHILS # 0.2 10^3/ul (0.0-0.5); EOSINOPHILS % 1.9 % (0.0-7.0); HEMATOCRIT 44.7 % (42.0-52.0); HEMOGLOBIN 14.8 g/dl (14.0-18.0); LYMPHOCYTES # 2.4 10^3/ul (0.8-2.9); LYMPHOCYTES % 28.6 % (15.0-51.0); MEAN CORPUSCULAR HEMOGLOBIN 28.6 pg (29.0-33.0); MEAN CORPUSCULAR HGB CONC 33.1 g/dl (32.0-37.0); MEAN CORPUSCULAR VOLUME 86.5 fl (82.0-101.0); MEAN PLATELET VOLUME 10.6 fl (7.4-10.4); MONOCYTE # 0.5 10^3/ul (0.3-0.9); MONOCYTES % 5.9 % (0.0-11.0); NEUTROPHIL # 5.2 10^3/ul (1.6-7.5); NEUTROPHILS % 62.7 % (39.0-77.0); PLATELET COUNT 247 10^3/UL (140-415); RED BLOOD COUNT 5.17 10^6/ul (4.70-6.10)
[2018-08-13 20:28] LABS: INR 1.02; PROTIME 13.5 Sec (11.9-14.9); PT RATIO 1.1
[2018-08-13 20:29] LABS: PARTIAL THROMBOPLASTIN TIME 37.9 Sec (23.0-35.0)
[2018-08-13 20:32] LABS: ALANINE AMINOTRANSFERASE 12 IU/L (13-69); ALBUMIN 4.9 g/dl (3.3-4.9); ALBUMIN/GLOBULIN RATIO 1.28; ALKALINE PHOSPHATASE 70 IU/L (42-121); ANION GAP 12 (5-13); ASPARTATE AMINO TRANSFERASE 21 IU/L (15-46); BILIRUBIN,INDIRECT 0.5 mg/dl (0-1.1); BILIRUBIN,TOTAL 0.5 mg/dl (0.2-1.3); BLOOD UREA NITROGEN 16 mg/dl (7-20); CALCIUM 10.7 mg/dl (8.4-10.2); CARBON DIOXIDE 28 mmol/L (21-31); CHLORIDE 102 mmol/L (97-110); CREATININE 0.95 mg/dl (0.61-1.24); Estimated GFR > 60 mL/min (>60); GLUCOSE 93 mg/dl (70-220); LIPASE 99 U/L (23-300); POTASSIUM 4.2 mmol/L (3.5-5.1); SODIUM 142 mmol/L (135-144); TOTAL PROTEIN 8.7 g/dl (6.1-8.1)
[2018-08-13 20:43] LABS: TROPONIN-I < 0.012 ng/ml (0.000-0.120)
== END 2018-08-13 22:52 | disposition home or self-care (01) ==
LOC: E/R 14:06
DX: N20.0 Calculus of kidney (principal); I10 Essential (primary) hypertension; E11.9 Type 2 diabetes mellitus without complications; E66.9 Obesity, unspecified; Z68.42 Body mass index [BMI] 45.0-49.9, adult; Z79.82 Long term (current) use of aspirin
CPT/HCPCS: 36415; 74176; 80053; 83690; 84484; 85025; 85610; 85730; 93005; 96374; 96375; 99285-25